=== PATIENT | male | born 1950 | race Caucasian/White ===

== ENCOUNTER 2016-07-24 12:04 | Emergency (ER) | payer MEDICARE, OTHER ==
[~2016-07-24] VITALS: Ht 165.1 cm; Wt 89.8 kg
[~2016-07-24 12:04] MED LIST: UNKNOWN MEDS
[2016-07-24 12:06] VITALS: Ht 165.1 cm; Wt 89.8 kg
[2016-07-24] MEDS ORDERED: DIPHTH/TET/ACEL PERTUSS (ADULT) 0.5 ML VIAL IM* ONE (13:30)
[2016-07-24] MEDS ORDERED: CEPHALEXIN 500 MG CAP PO ONE (13:30)
[2016-07-24] MEDS ORDERED: TRIMETHOPRIM/SULFAMETHOX (DS) TAB PO ONE (13:30)
--- NOTE | 2016-07-24 13:46 | RADRPT ---
PROCEDURE: XR Hand. CLINICAL INDICATION: LAC TECHNIQUE: AP and lateral views of the left thumb and hand were obtained. COMPARISON: No prior studies are available for comparison. FINDINGS: The bones of the hand appear intact, with no evidence of fracture, dislocation, or subluxation. The joint spaces are preserved. Bone mineralization is normal. No radiopaque foreign body No significant soft tissue swelling is seen. IMPRESSION: Unremarkable left thumb and hand. No radiopaque foreign body. RPTAT:AAJJ Physician Leilani Date Time Electronically viewed and signed by Physician Leilani on 07/24/2016 13:46 SARINA/
[2016-07-24] MEDS ORDERED: BACTDS PO (14:00)
[2016-07-24] MEDS ORDERED: CEPH-443 PO (14:00)
[2016-07-24] MEDS ORDERED: IBUP-1542 PO (14:00)
--- NOTE | 2016-07-24 14:05 | ERD ---
ER Documentation Chief Complaint Date/Time DATE: 07/24/16 TIME: 14:03 Chief Complaint left thumb lac, 5 days ago HPI This 65-year-old male sustained a laceration on his left thumb with a piece of glass that fell on him 5 days ago. He complains of some redness and decreased extension. His tetanus is not up-to-date. ROS All systems reviewed and are negative except as per history of present illness. Medications Home Meds Active Scripts Ibuprofen* (Motrin*) 600 Mg Tab, 600 MG PO Q6, #14 TAB Prov:JAVIER CAMPBELL MD 07/24/16 Cephalexin* (Keflex*) 500 Mg Capsule, 500 MG PO QID for 7 Days, CAP Prov:JAVIER CAMPBELL MD 07/24/16 Sulfamethoxazole-Trimethoprim* (Bactrim* DS) 800-160 Mg Tab, 1 TAB PO BID for 7 Days, TAB Prov:JAVIER CAMPBELL MD 07/24/16 Reported Medications [Unknown Meds] No Conflict Check 05/25/12 Allergies Allergies: Coded Allergies: No Known Allergy (Unverified , 05/27/12) PMhx/Soc History of Surgery: No Anesthesia Reaction: No Hx Neurological Disorder: No Hx Respiratory Disorders: No Hx Cardiac Disorders: Yes (HTN, CHF, ID, CAD) Hx Psychiatric Problems: No Hx Miscellaneous Medical Probl: Yes (DM, dyslipidemia) Hx Alcohol Use: No Hx Substance Use: No Hx Tobacco Use: No Physical Exam Vitals Vital Signs Date Time Temp Pulse Resp B/P Pulse Ox O2 Delivery O2 Flow Rate FiO2 07/24/16 14:12 98.7 78 20 136/87 100 Room Air 07/24/16 12:06 98.1 58 18 119/58 99 Physical Exam Const: [] Alert, [id number], pleasant. Head: Atraumatic Eyes: Normal Conjunctiva ENT: Normal External Ears, Nose and Mouth. Neck: Full range of motion..~ No meningismus. Resp: Clear to auscultation bilaterally Cardio: Regular rate and rhythm, no murmurs Abd: Soft, non tender, non distended. Normal bowel sounds Skin: No petechiae or rashes Back: No midline or flank tenderness Ext: No cyanosis, or edema. There is approximately 2 cm laceration across the PIP of his left thumb dorsum. There is some surrounding redness but no streaking or proximal tendon tenderness . There is no deformities. Patient has decreased extension of his PIP joint. Neur: Awake and alert Psych: Normal Mood and Affect Results 24 hrs Current Medications Medications (Trade) Dose Ordered Sig/Morteza Route PRN Reason Start Time Stop Time Status Last Admin Dose Admin Diphtheria/ Tetanus/Acell Pertussis (Adacel) 0.5 ml ONCE ONCE IM* 07/24/16 13:30 07/24/16 13:31 DC 07/24/16 13:17 Cephalexin (Keflex) 500 mg ONCE ONCE PO 07/24/16 13:30 07/24/16 13:31 DC 07/24/16 13:17 Trimethoprim/ Sulfamethoxazole (Bactrim (Ds)) 1 tab ONCE ONCE PO 07/24/16 13:30 07/24/16 13:31 DC 07/24/16 13:22 Procedures/MDM Patient was given a tetanus booster X-ray left thumb 2V Interpreted by me: Bones: No fracture Joints: No dislocation Foreign body: None. Impression of normal left thumb x-ray Patient was placed in left thumb metal splint after dressing. Patient was given Keflex and Bactrim p.o. Patient has signs and symptoms of a 5-day-old laceration with possible secondary infection of the left thumb. Examination suggests possible tendon deficit. Patient will be discharged home with a instructions for hand surgery follow-up this week. Patient will be prescribed Bactrim and Keflex and referred to local hand surgeons. Patient was advised he may need authorization from his primary care doctor. Patient was advised of the risk of not getting appropriate hand follow-up and risk of permanent deficits of his left thumb. Signs or symptoms do not suggest osteomyelitis or tenosynovitis. Patient was placed in the middle extension splint. Splint Assessment: Neurovascularly intact post splint placement with good fit. Departure Diagnosis: Primary Impression: Cellulitis Site of cellulitis: extremity Site of cellulitis of extremity: finger Laterality: left Qualified Code: L03.012 - Cellulitis of finger of left hand Additional Impression: Laceration Condition: Stable Patient Instructions: Laceration, Old (Not Sutured), Laceration, Tendon Referrals: ANIKET SEVILLA MD [facility] Additional Instructions: See orthopedist hand surgeon for evaluation of tendon injury this week. Recheck sooner for worsening redness, fevers, new symptoms. May need authorization from primary doctor for orthopedist or hand surgery visit JAVIER CAMPBELL MD Jul 24, 2016 14:05
[2016-07-24 14:12] VITALS: BP 136/87; PULSE 78; RESP 20; TEMP 98.7
== END 2016-07-24 14:14 | disposition home or self-care (01) ==
LOC: FTE 12:04
DX: S61.012A Laceration without foreign body of left thumb without damage to nail, initial encounter (principal); L03.012 Cellulitis of left finger; I10 Essential (primary) hypertension; I25.10 Atherosclerotic heart disease of native coronary artery without angina pectoris; I50.9 Heart failure, unspecified; E11.9 Type 2 diabetes mellitus without complications; W25.XXXA Contact with sharp glass, initial encounter; Y92.9 Unspecified place or not applicable; Z23 Encounter for immunization
CPT/HCPCS: 73140; 90471

== ENCOUNTER 2017-07-19 14:43 | Emergency (ER) | END 2017-07-19 20:14 | disposition home or self-care (01) ==